=== PATIENT | female | born 1985 | race Hispanic/Latino ===

== ENCOUNTER 2017-08-24 02:47 | Emergency (ER) | payer OTHER ==
[2017-08-24 04:15] VITALS: BMI 26.6
[2017-08-24 06:03] LABS: SQUAMOUS EPITHIAL < 1 /hpf (0-5); URINE BILIRUBIN NEGATIVE (NEGATIVE); URINE BLOOD NEGATIVE (NEGATIVE); URINE CLARITY CLEAR (Clear); URINE COLOR STRAW (YELLOW); URINE GLUCOSE (UA) NEG (Normal); URINE LEUKOCYTE ESTERASE NEG Leu/uL (Negative); URINE PROTEIN NEGATIVE (NEGATIVE); URINE UROBILINOGEN 0.2-1.0 mg/dL (0.2-1.0)
--- NOTE | 2017-08-24 07:45 | OBHP ---
Datetime: 08/24/2017 03:45 IP Adm Impression: , intrauterine IP Admit Plan: Observation/Evaluation Admit Comment, IP Provider: 32 yo EGA 22.6 presents with concerns for decreased moveme nt and pelvic pain. Pt reports last movement was greater than 24 hours ago. She also reports ab dominal pain, which began 4 hours prior to arrival to [facility]. Pain is suprapubic, intermittent, nonradi ating and rated 2/10. Reports: FM; Denies: VB, LOF, CTX Last sexual activity 8 days prior ROS: Denies: dizziness, headaches, CP/SOB/N/V, dysuria care: Dr. Quigley at [facility] in [facility] Conceived via fertility treatments. Last visit was 08/15 where she had her anatomy scan. Pmhx: none Famhx: hypothyroid, htn Soc: lives with , Denies: smoking, alcohol, illicit drugs Surghx: none NKDA Meds: PNV Gen: AAOx3 Cardiac: S1S2 no murmurs Resp: clear to auscultation bilaterally, no wheezing Abdominal: fundus palpable at umbilicus, gravid, nontender to palpation CVA nontender no calf tenderness Speculum exam: closed cervix Audible heart tones 32 yo IUP EGA 22.6 hear tones audible Cervix closed on speculum exam UA -pt given script for cephalexin 500mg PO TID #21 and was instructed to take abx if UA returns posi tive -Pt has follow up visit tomorrow, August 25 Case d/w Dr. Joao Vázquez MD PGY1 OB Hospitalist on-call..Wit PGY1, I saw this patient. Agree with note MAHDNO Pelvic Type - PN: Not Done Extremities - PN: Normal Abdomen - PN: Normal Back - PN: Normal Breast - PN: Not Done Lungs - PN: Normal Heart - PN: Normal Thyroid - PN: Not Done Neurologic - PN: Normal HEENT - PN: Normal General - PN: Normal FHR - Baseline A Provider: + EGA AdmitDate IP: 21.6 Vital Signs Provider: Reviewed; Within Normal Limits IP Chief Complaint: Decreased movement; Maternal discomfort NICHD Variability Prov Fetus A: NICHD Accel Fetus A IP Provider: FHR Category Provider Fetus A: NICHD Decel Fetus A IP Provider: None Genitourinary Exam: Normal DTRs - PN: Not Done
--- NOTE | 2017-08-24 07:45 | OBDCSUM ---
Datetime: 08/24/2017 04:15 Discharged to, Provider: Home Follow up at, Provider: [facility] Disch Instr Activity: Normal activity Disch Instr Diet: Regular Discharge Time: 08/24/2017 04:15 Follow up in weeks, Provider: 09/02/2017 Disch Referrals: None Disch Activity Restrictions: No lifting Discharge Comment, Provider: NATASHA negative - pt informed by phone 7:30am by me AVILEZ Discharge Diagnosis Prov Other: +FM
[2017-08-24 08:39] VITALS: BP 93/51; PULSE 69
== END 2017-08-24 04:30 | disposition home or self-care (01) ==
LOC: H.EROB2 02:47
DX: O36.8121 Decreased fetal movements, second trimester, fetus 1 (principal); O26.92 Pregnancy related conditions, unspecified, second trimester; R10.2 Pelvic and perineal pain; Z3A.22 22 weeks gestation of pregnancy